=== PATIENT | female | born 1960 | race Caucasian/White ===

== ENCOUNTER 2021-06-27 21:40 | Emergency (ER) | payer OTHER ==
[~2021-06-27] VITALS: Ht 160 cm; Wt 81.6 kg
--- NOTE | 2021-06-27 21:57 | NUR ---
BIBHUSBAND WITH C/O LEFT ARM NUMBNESS X1 DAY "WORST TODAY" +VOMITTING +SOLORZANO +NAUSEA -CHEST PAIN. 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 CONNECTED PT TO TELE MONITOR AND POX
[2021-06-27 22:56] LABS: BASOPHILS # (AUTO) 0.1 K/uL (0.0-0.2); BASOPHILS % (AUTO) 0.6 % (0.0-2.0); EOSINOPHILS % (AUTO) 1.6 % (0.0-6.0); HEMATOCRIT 45 % (33-45); HEMOGLOBIN 14.4 g/dL (11.5-14.8); LYMPHOCYTES # (AUTO) 4.4 K/uL (0.8-4.8); LYMPHOCYTES % (AUTO) 36.5 % (20.0-44.0); MEAN CORPUSCULAR HGB CONC 33 g/dl (31.0-36.0); MEAN CORPUSCULAR VOLUME 91 fL (82-100); MONOCYTES # (AUTO) 0.7 K/uL (0.1-1.30); MONOCYTES % (AUTO) 5.4 % (2.0-12.0); NEUTROPHILS # (AUTO) 6.8 K/uL (1.8-8.9); NEUTROPHILS % (AUTO) 55.9 % (43.0-81.0); PLATELET COUNT (AUTO) 265 K/uL (150-450); RED BLOOD CELL COUNT(AUTO) 4.87 MIL/uL (4.0-5.2); WHITE BLOOD COUNT (AUTO) 12.2 K/uL (4.3-11.0)
--- NOTE | 2021-06-27 22:57 | NUR ---
BLOODWORK DRAWN AND SENT TO LAB
--- NOTE | 2021-06-27 23:07 | NUR ---
PT TAKEN TO CT
[2021-06-27] MEDS ORDERED: METOCLOPRAMIDE HCL 10 MG/2 ML VIAL ONE (23:12)
--- NOTE | 2021-06-27 23:25 | NUR ---
PT RETURNED TO ER ROOM 1
[2021-06-27] MEDS ORDERED: IV NS 0.9% 1,000 ML BAG IV ONE (23:30)
[2021-06-27] MEDS ORDERED: METOCLOPRAMIDE HCL 10 MG/2 ML VIAL IV ONE (23:30)
--- NOTE | 2021-06-28 00:02 | NUR ---
INITIATED R CLAYTON #22G ON NS
[2021-06-28 00:14] LABS: CARBON DIOXIDE 29 mmol/L (21-32); CHLORIDE 104 mmol/L (98-107); GLUCOSE 112 mg/dL (74-106); POTASSIUM 3.9 mmol/L (3.5-5.1); SODIUM SERUM 143 mmol/L (136-145); UREA NITROGEN, BLOOD 16 mg/dL (7-18)
--- NOTE | 2021-06-28 00:17 | NUR ---
COVID SWAB COLLECTED AND SENT TO LAB
[2021-06-28 00:27] LABS: ALANINE AMINOTRANSFERASE 28 U/L (12-78); ALBUMIN 3.7 g/dL (3.4-5.0); ALKALINE PHOSPHATASE 81 U/L (46-116); ASPARTATE AMINOTRANSFERASE 16 U/L (15-37); BILIRUBIN,DIRECT 0.1 mg/dL (0.0-0.2); BILIRUBIN,TOTAL 0.2 mg/dL (0.2-1.0); CREATININE 0.8 mg/dL (0.6-1.3)
[2021-06-28] MEDS ORDERED: ASPIRIN 81 MG TAB.CHEW PO ONE (01:00)
[2021-06-28] MEDS ORDERED: ASPIRIN EC 81 MG TABLET.DR PO ONE (01:04)
[2021-06-28] MEDS ORDERED: ASPIRIN 81 MG TAB.CHEW ONE (01:05)
[2021-06-28] MEDS ORDERED: ALBU8.5H8 INH (01:09)
--- NOTE | 2021-06-28 01:21 | NUR ---
Patient discharged to home in stable condition. Written and verbal after care instructions given. Patient verbalizes understanding of instruction. RX given
[2021-06-28 01:22] VITALS: BP 110/60
== END 2021-06-28 01:22 | disposition home or self-care (01) ==
LOC: ER 21:40
DX: R51.9 Headache, unspecified (principal); R11.2 Nausea with vomiting, unspecified; R06.2 Wheezing; R20.2 Paresthesia of skin; Z82.49 Family history of ischemic heart disease and other diseases of the circulatory system; Z20.822 Contact with and (suspected) exposure to COVID-19; F17.200 Nicotine dependence, unspecified, uncomplicated; E11.9 Type 2 diabetes mellitus without complications; R94.31 Abnormal electrocardiogram [ECG] [EKG]
CPT/HCPCS: 36415; 70450; 71045; 72125; 80048; 80076; 83690; 83880; 84484; 85025; 87426; 93005 ×2; 96361; 96374; 99285; C9803; J2765

== ENCOUNTER 2021-07-19 14:20 | Emergency (ER) | payer OTHER ==
[~2021-07-19] VITALS: Ht 160 cm; Wt 85.7 kg
[~2021-07-19 14:20] MED LIST: ALBU8.5H8 INH
[2021-07-19 15:12] VITALS: BP 134/71
--- NOTE | 2021-07-19 15:24 | NUR ---
DR NORRIS AT THE BEDSIDE
[2021-07-19] MEDS ORDERED: IBUP-1955 PO (17:00)
--- NOTE | 2021-07-19 17:25 | NUR ---
Patient discharged to home in stable condition. Written and verbal after care instructions given. Patient verbalizes understanding of instruction.
== END 2021-07-19 17:25 | disposition home or self-care (01) ==
LOC: ER 14:21
DX: S93.491A Sprain of other ligament of right ankle, initial encounter (principal); E11.9 Type 2 diabetes mellitus without complications; Z60.2 Problems related to living alone; Z79.899 Other long term (current) drug therapy; X50.1XXA Overexertion from prolonged static or awkward postures, initial encounter; Y93.89 Activity, other specified; Y92.89 Other specified places as the place of occurrence of the external cause; Y99.8 Other external cause status
CPT/HCPCS: 73610-TC; 73630-TC

== ENCOUNTER 2021-12-21 01:16 | Emergency (ER) | payer OTHER ==
[~2021-12-21] VITALS: Ht 160 cm; Wt 80.7 kg
[~2021-12-21 01:16] MED LIST changes: +ACET-2605 PO; +IBUP-1955 PO
--- NOTE | 2021-12-21 02:00 | NUR ---
PATIENT BIBSISTER C/O LEFT SIDE NECK SWELLING SINCE 2299. PATIENT STATED PAIN WHEN SWALLOWING. PATIENT IS A/O X 4, RR EVEN AND UNLABORED, AIRWAY CLEAR. PATIENT TAKEN TO ER BED 09, STEADY GAIT. PATIENT CONNECTED TO CARDIAC AND POX MONITOR.
[2021-12-21 02:40] LABS: BASOPHILS # (AUTO) 0.1 K/uL (0.0-0.2); BASOPHILS % (AUTO) 0.5 % (0.0-2.0); EOSINOPHILS % (AUTO) 2.2 % (0.0-6.0); HEMATOCRIT 42 % (33-45); LYMPHOCYTES # (AUTO) 3.8 K/uL (0.8-4.8); MEAN CORPUSCULAR HGB CONC 33 g/dl (31.0-36.0); MEAN CORPUSCULAR VOLUME 89 fL (82-100); MONOCYTES # (AUTO) 0.6 K/uL (0.1-1.30); MONOCYTES % (AUTO) 5.5 % (2.0-12.0); NEUTROPHILS # (AUTO) 5.8 K/uL (1.8-8.9); NEUTROPHILS % (AUTO) 55.8 % (43.0-81.0); PLATELET COUNT (AUTO) 234 K/uL (150-450); RED BLOOD CELL COUNT(AUTO) 4.75 MIL/uL (4.0-5.2); WHITE BLOOD COUNT (AUTO) 10.5 K/uL (4.3-11.0)
[2021-12-21] MEDS ORDERED: IOHEXOL-300 100 ML VIAL IV ONE (02:47)
[2021-12-21] MEDS ORDERED: CT SWABBABLE VALVE TRANS SET 1 EA INFUS.SET MC ONE (02:48)
[2021-12-21] MEDS ORDERED: IV NS 0.9% 250 ML IV ONE (02:48)
[2021-12-21 03:04] LABS: CALCIUM, SERUM 9.2 mg/dL (8.5-10.1); CREATININE 0.8 mg/dL (0.6-1.3); POTASSIUM 4.2 mmol/L (3.5-5.1)
--- NOTE | 2021-12-21 03:17 | NUR ---
PT TAKEN TO CT VIA ANA
--- NOTE | 2021-12-21 03:40 | NUR ---
PT RETURNED TO ER BED [address] VIA ANA
--- NOTE | 2021-12-21 05:11 | NUR ---
Patient discharged to home in stable condition. Written and verbal after care instructions given. Patient verbalizes understanding of instruction.IV removed. Catheter intact and site benign. Pressure and 4x4 applied to site. No bleeding noted. Pt ambulatory with a steady gait
[2021-12-21 05:12] VITALS: BP 117/70
== END 2021-12-21 05:13 | disposition home or self-care (01) ==
LOC: MERGE 01:33 → ER 01:33
DX: K11.21 Acute sialoadenitis (principal); I10 Essential (primary) hypertension; E11.9 Type 2 diabetes mellitus without complications; E03.9 Hypothyroidism, unspecified; F17.200 Nicotine dependence, unspecified, uncomplicated; Z60.2 Problems related to living alone; Z79.1 Long term (current) use of non-steroidal anti-inflammatories (NSAID)
CPT/HCPCS: 36415; 70491; 80048; 85025; 99285; J7050; Q9967